=== PATIENT | female | born 1945 | race Caucasian/White ===

== ENCOUNTER 2016-06-21 08:23 | Emergency (ER) | payer MEDICARE, OTHER ==
[~2016-06-21] VITALS: Ht 165.1 cm; Wt 67.8 kg
[~2016-06-21 08:23] MED LIST: BLOOD PRESSURE PO; LIPI10TA PO; SYNT137T PO
[2016-06-21 08:30] VITALS: BP 130/70; PULSE 119; RESP 16; TEMP 99.2; O2SAT 97
[2016-06-21] MEDS ORDERED: LIPI10TA PO (09:12)
[2016-06-21] MEDS ORDERED: blood pressure med PO (09:12)
[2016-06-21] MEDS ORDERED: ASPI81CH3 CHEW (09:12)
[2016-06-21] MEDS ORDERED: LEVO75TA43 PO (09:12)
[2016-06-21] MEDS ORDERED: AUGM875T PO (09:28)
--- NOTE | 2016-06-21 09:28 | PD ---
HPI Chief Complaint: Skin Problem Time Seen by Provider: 09:23 Travel History International Travel<30 days: No Contact w/Intl Traveler<30days: No Traveled to known affect area: No History of Present Illness HPI Patient presents with long-standing lymphedema. Followed by oncology. On vacation. Reports that when she experiences cellulitis her oncologist normally gives her injection or Rocephin and treat her with antibiotics. Reports increased redness in her left upper extremity since last night. Denies any nausea vomiting diarrhea or fever. Denies any chest pain shortness of breath urinary or bowel symptoms. PFSH Past Medical History Autoimmune Disease: Yes (lymphedema left arm) High Cholesterol: Yes Immunizations Current: Yes (shingles vaccine 2016) Thyroid Disease: Yes Influenza Vaccination: Yes ?: Not Menopausal: Yes Social History Alcohol Use: Yes (occas wine) Tobacco Use: No Substance Use: No Allergies-Medications (Allergen,Severity, Reaction): Coded Allergies: Darvocet-N 100 (Verified Adverse Reaction, Intermediate, Nausea/Vomiting, 06/21/16) Darvon (Verified Adverse Reaction, Intermediate, Nausea/Vomiting, 06/21/16) Tramadol (Verified Adverse Reaction, Intermediate, Nausea/Vomiting, 06/21/16 ) Reported Meds & Prescriptions Reported Meds & Active Scripts Active Reported [blood pressure med] 1 Tab PO DAILY Aspirin 81 Low Dose (Aspirin) 81 Mg Chew 81 Mg CHEW EVERY OTHER DAY Levoxyl (Levothyroxine Sodium) 75 Mcg Tab 75 Mcg PO DAILY Lipitor (Atorvastatin Calcium) 10 Mg Tab 10 Mg PO HS Review of Systems General / Constitutional: No: Fever Eyes: No: Visual changes HENT: No: Headaches Cardiovascular: No: Chest Pain or Discomfort Respiratory: No: Shortness of Breath Gastrointestinal: No: Abdominal Pain Genitourinary: No: Dysuria Musculoskeletal: No: Pain Skin: No Rash Neurologic: No: Weakness Psychiatric: No: Depression Endocrine: No: Polydipsia Hematologic/Lymphatic: No: Easy Bruising Physical Exam Narrative GENERAL: Well-nourished, well-developed patient. SKIN: Focused skin assessment warm/dry. Entire body Neurofibromatosis noted. Left upper extremity with lymphedema and cellulitis from the wrist to the elbow HEAD: Normocephalic. EYES: No scleral icterus. No injection or drainage. NECK: Supple, trachea midline. No JVD or lymphadenopathy. CARDIOVASCULAR: Regular rate and rhythm without murmurs, gallops, or rubs. RESPIRATORY: Breath sounds equal bilaterally. No accessory muscle use. GASTROINTESTINAL: Abdomen soft, non-tender, nondistended. MUSCULOSKELETAL: No cyanosis, or edema. BACK: Nontender without obvious deformity. No CVA tenderness. Data Data Last Documented VS Vital Signs Date Time Temp Pulse Resp B/P Pulse Ox O2 Delivery O2 Flow Rate FiO2 06/21/16 08:30 99.2 119 16 130/70 97 MDM Medical Decision Making Medical Screen Exam Complete: Yes Emergency Medical Condition: Yes Differential Diagnosis Cellulitis, viral exanthem, dermatitis Narrative Course Assessment and plan discussed with patient and at bedside Diagnosis Primary Impression: Cellulitis Qualified Code: L03.114 - Cellulitis of left upper extremity Patient Instructions: General Instructions Additional Instructions: Follow-up with oncology on return to home, antibiotic as prescribed, Tylenol or Motrin for pain Med/Other Pt SpecificInfo: Prescription(s) given Scripts Amoxicillin-Clavulanate (Augmentin)875-125 mg Exg762 Mg PO BID #20 TAB Ref 0 not for use in CrCl <30 ml/min. Prov:Mitchell Hi MD 06/21/16 Disposition: 01 DISCHARGE HOME Condition: Good Mitchell Hi MD June 21, 2016 09:28
[2016-06-21] MEDS ORDERED: LIDOCAINE HCL 1% 50 ML VIAL XX ONE (09:30)
== END 2016-06-21 10:21 | disposition home or self-care (01) ==
LOC: PHED 08:23
DX: L03.114 Cellulitis of left upper limb (principal); E78.00 Pure hypercholesterolemia, unspecified
CPT/HCPCS: 96372; 99282; J0696